=== PATIENT | male | born 1975 | race Caucasian/White ===

== ENCOUNTER → 2021-11-27 | Outpatient (CLI) | payer OTHER ==
--- NOTE | 2021-11-28 04:46 | MR ---
EXAMINATION TYPE: MR lumbar spine wo con DATE OF EXAM: 11/27/2021 COMPARISON: None HISTORY: Low back pain Multiplanar multiecho imaging of the lumbar spine without contrast. Normal alignment. Disc spaces are fairly normal. There is mild posterior disc bulging at L4-5 and L5- S1. There is developmentally adequate spinal canal. There is no evidence of any significant spinal st enosis. There is no lumbar paraspinal mass. There is no compression fracture. Sacroiliac joints are intact. T he lumbar neural foramina are widely patent. IMPRESSION: Mild posterior concentric disc bulging at L4-5 and L5-S1. No spinal stenosis. No fracture.
== END | disposition home or self-care (01) ==
LOC: RADMRIMAIN 16:06
PROVIDERS: ATTEND Family Medicine
DX: M51.87 Other intervertebral disc disorders, lumbosacral region (principal); M54.16 Radiculopathy, lumbar region
CPT/HCPCS: 72148